=== PATIENT | male | born 1995 ===

== ENCOUNTER 2017-10-29 13:45 | Emergency (ER) | payer SELFPAY ==
[2017-10-29 13:49] VITALS: BP 147/92
[2017-10-29] MEDS ORDERED: PENICILLIN VK 250 MG TAB PO SCH (14:00)
[2017-10-29] MEDS ORDERED: APAP/HYDROCODONE 325/5 TAB PO ONE (14:00)
[2017-10-29] MEDS ORDERED: HYDR-4309 PO (14:05)
[2017-10-29] MEDS ORDERED: PENI-24 PO (14:05)
--- NOTE | 2017-10-29 14:07 | ER Report ---
History and Physical Time Seen By MD: 13:58 Hx. of Stated Complaint: PT CHIPPED TOOTH ABOUT A YEAR AGO. PT REPORTS PAIN FROM TOOTH. VISUAL PUSS DRAINAGE FROM GUMS ABOVE TOOTH. HPI/ROS CHIEF COMPLAINT: Dental pain HISTORY OF PRESENT ILLNESS: 22-year-old male with right upper incisor chipped about a year ago and since showed some signs of decay presents with pain in that tooth worsening over the past few days associated with fullness and exquisite pain with palpation of the gums above said tooth. He has not had any discharge from the gums thus far. Has not been in to see a dentist due to lack of dental insurance. Denies antibiotic allergies. Denies sensitivity to hot or cold but pressure does increase pain severely. REVIEW OF SYSTEMS: Respiratory: No cough, no dyspnea. Cardiovascular: No chest pain, no palpitations. Gastrointestinal: No vomiting, no abdominal pain. Musculoskeletal: No back pain. Allergies: Coded Allergies: No Known Drug Allergies (Unverified , 10/29/17) Home Meds No Active Prescriptions or Reported Meds Constitutional Vital Sign - Last 24 Hours 10/29/17 13:49 Temp 98.2 Pulse 73 Resp 14 B/P (MAP) 147/92 Pulse Ox 94 O2 Delivery Room Air Physical Exam General Appearance: The patient is alert, has no immediate need for airway protection and no current signs of toxicity. He appears to be in mild to moderate pain Eyes: Pupils equal and round no injection. Dental exam: Right upper incisor moderate to severe decay with training abscess superiorly and gumline. Abscess started draining yellowish pus spontaneously during exam. Respiratory: Chest is non tender, lungs are clear to auscultation. Cardiac: regular rate and rhythm, no murmurs gallops or rubs Gastrointestinal: Abdomen is soft and non tender, no masses, bowel sounds normal. Musculoskeletal: Neck: Neck is supple and non tender. Extremities have full range of motion and are non tender. Skin: No rashes or lesions. No rashes DIFFERENTIAL DIAGNOSIS: After history and physical exam differential diagnosis was considered for [ ] Medical Decision Making ED Course/Re-evaluation ED Course Procedure: Abscess drainage; Additional palpation performed overlying abscess to ensure maximum drainage of pus. Approximately a 1 mL was drained. The patient rinsed with ice water post procedure. Home care was discussed including saline rinses and Listerine use as well as antibiotics 1st dose given here. I strongly encouraged dental follow-up as soon as possible. Decision to Disposition Date: Oct 29, 2017 Decision to Disposition Time: 14:04 Depart Departure Latest Vital Signs Vital Signs Date Time Temp Pulse Resp B/P (MAP) Pulse Ox O2 Delivery O2 Flow Rate FiO2 10/29/17 13:49 98.2 73 14 147/92 94 Room Air Impression: Primary Impression: Gingival abscess Condition: Improved Disposition: HOME OR SELF-CARE New Scripts Hydrocodone Bit/Acetaminophen (NORCO 5-325 TABLET) 1 Each Tablet 1 EACH PO Q6H for PAIN for 7 Days, #20 TAB Prov: NATALY DUGAN MD 10/29/17 Penicillin V Potassium 500 Mg Tab (PENICILLIN V POTASSIUM 500 MG TAB) 500 Mg Tablet 500 MG PO QID for 10 Days, #40 TAB Prov: NATALY DUGAN MD 10/29/17 Patient Instructions: Dental Abscess (ED) Additional Instructions: See a dentist as soon as possible. Use saline rinses 1-2 tsp in 6-8oz of warm water as well as Listerine. Finish all antibiotics. You may also take ibuprofen 2-3 tabs every 6 hours for pain control. NATALY DUGAN MD Oct 29, 2017 14:07
== END 2017-10-29 14:18 | disposition home or self-care (01) ==
LOC: ER 14:00
DX: K05.219 Aggressive periodontitis, localized, unspecified severity (principal)
CPT/HCPCS: 99283